=== PATIENT | female | born 1985 | race Caucasian/White ===

== ENCOUNTER 2018-01-18 15:55 | Emergency (ER) | payer BC, MEDICAID ==
--- NOTE | 2018-01-18 17:20 | EDM.PDOC ---
ED HPI GENERAL MEDICAL PROBLEM - General Chief Complaint: Gastrointestinal Problem Stated Complaint: VOMITING Time Seen by Provider: 01/18/18 16:24 Source of Information: Reports: Patient History Limitations: Reports: No Limitations - History of Present Illness INITIAL COMMENTS - FREE TEXT/NARRATIVE: Patient is a 32 year old female who presents to the E.D. complaining of a few episodes of diarrhea with n/v starting this morning. Patient has been dealing with URI and was started on Amoxicillin. States URI symptoms are improving. All GI symptoms started early this morning. Since 829 she has started to feel better. Has been able to sip on pedialyte and jody cooper with no emesis. Developed a fever this early afternoon of 100.1 that broke. She has been able to keep the amoxicillin down. Denies with admission to the E.D. Fever, sore throat, body aches, dysuria, or rash. - Related Data Allergies Allergy/AdvReac Type Severity Reaction Status Date / Time gemifloxacin [From Factive] Allergy Hives Verified 01/18/18 16:07 Penicillins Allergy Hives Verified 01/18/18 16:06 povidone-iodine Allergy Rash Verified 01/18/18 16:07 [From Betadine] soap [From Betadine] Allergy Rash Verified 01/18/18 16:07 Home Meds: Home Meds Ascorbate Calcium [Vitamin C] 4,000 mg PO DAILY 01/18/18 [History] Cefdinir [Omnicef] 1 tab PO Q12H 01/18/18 [History] Cetirizine HCl [Zyrtec] 10 mg PO DAILY 01/18/18 [History] Ethinyl Estradiol/Drospirenone [Valerie 28 Tablet] 1 tab PO DAILY 01/18/18 [History] Montelukast [Singulair] 10 mg PO DAILY 01/18/18 [History] Ondansetron [Zofran ODT] 4 mg PO Q6H PRN #12 tab.dis 01/18/18 [Rx] Past Medical History HEENT History: Reports: Other (See Below) Other HEENT History: severe allergies Respiratory History: Reports: Asthma Gastrointestinal History: Reports: Other (See Below) Other Gastrointestinal History: colitis Social & Family History - Tobacco Use Smoking Status *Q: Former Smoker Used Tobacco, but Quit: Yes Month Tobacco Last Used: 2 yrs - Caffeine Use Caffeine Use: Reports: Coffee, Soda, Tea - Recreational Drug Use Recreational Drug Use: No ED ROS GENERAL - Review of Systems Review Of Systems: See Below Constitutional: Reports: Malaise, Decreased Appetite. Denies: Fever, Chills HEENT: Reports: No Symptoms Respiratory: Reports: No Symptoms Cardiovascular: Reports: No Symptoms GI/Abdominal: Reports: Diarrhea, Nausea, Vomiting : Reports: No Symptoms Musculoskeletal: Reports: No Symptoms Skin: Reports: No Symptoms Neurological: Reports: No Symptoms ED EXAM, GI/ABD - Physical Exam Exam: See Below Exam Limited By: No Limitations General Appearance: Alert, WD/WN, No Apparent Distress Ears: Hearing Grossly Normal Nose: Normal Inspection Throat/Mouth: Normal Inspection, Normal Oropharynx, Normal Voice, No Airway Compromise, Other (moist oral mucosa) Neck: Normal Inspection, Supple Respiratory/Chest: No Respiratory Distress, Lungs Clear, Normal Breath Sounds, No Accessory Muscle Use, Chest Non-Tender Cardiovascular: Normal Peripheral Pulses, Regular Rate, Rhythm GI/Abdominal Exam: Normal Bowel Sounds, Soft, Non-Tender, No Organomegaly, No Distention Neurological: Alert, Oriented, CN II-XII Intact, Normal Cognition, No Motor/ Sensory Deficits Psychiatric: Normal Affect, Normal Mood Skin Exam: Warm, Dry, Intact, Normal Color, No Rash Course - Vital Signs Last Recorded V/S: Last Vital Signs Temp 98.9 F 01/18/18 16:26 Pulse 80 01/18/18 16:26 Resp 20 01/18/18 16:26 BP 120/77 01/18/18 16:26 Pulse Ox 98 01/18/18 16:26 - Re-Assessments/Exams Free Text/Narrative Re-Assessment/Exam: Mothers symtoms are improving. Son has similar symptoms and is improving as well. No testing or treatment required at this time. Discharge instructions as documented. Departure - Departure Time of Disposition: 17:16 Disposition: Home, Self-Care 01 Condition: Good Clinical Impression: Gastroenteritis - Discharge Information Prescriptions: Ondansetron [Zofran ODT] 4 mg PO Q6H PRN #12 tab.dis PRN Reason: Nausea/Vomiting Instructions: Viral Gastroenteritis, Adult, [id number], Dehydration, Adult, [id number] Referrals: Diamond Leo PA [Primary Care Provider] - Forms: ED Department Discharge Additional Instructions: As discussed this most likely is a viral GI bug that will need to run its course and improve over the next 24 hours. Treatment will be clear liquid diet for the next 24 hours advancing to a bland diet when able. Utilize Zofran 4 mg 1 tablet 6 hours as needed for nausea vomiting. Continue sipping on water, Gatorade, Pedialyte, or Powerade. Continue taking your antibiotic as prescribed. Suggest taking a probiotic to help with any diarrhea you maybe experiencing. Follow-up with PCP this coming week if symptoms persist. Return to the ED if you develop any new or worsening symptoms.
== END 2018-01-18 17:20 | disposition home or self-care (01) ==
LOC: JD.ED 15:55 → SUPCPDRO 15:55 → JD.ED 17:20
DX: K52.9 Noninfective gastroenteritis and colitis, unspecified (principal); Z88.1 Allergy status to other antibiotic agents; Z88.0 Allergy status to penicillin; Z79.899 Other long term (current) drug therapy; Z87.891 Personal history of nicotine dependence
CPT/HCPCS: 99283